=== PATIENT | male | born 1975 | race Caucasian/White ===

== ENCOUNTER 2016-07-07 04:04 | Emergency (ER) | payer SELFPAY ==
[~2016-07-07] VITALS: Ht 175.3 cm; Wt 102.1 kg
[~2016-07-07 04:04] MED LIST: LISI10TA2 PO; Lidocaine TD; POLY17PO5 PO; PRED-220 PO; TRAM-29 PO
[2016-07-07] MEDS ORDERED: ASPIRIN 325 MG TABLET PO ONE (05:00)
[2016-07-07] MEDS ORDERED: PREDNISONE 10 MG TABLET PO ONE (05:00)
[2016-07-07] MEDS ORDERED: KETOROLAC TROMETHAMINE 30 MG/ML INJ. IV ONE (05:00)
[2016-07-07] MEDS ORDERED: IPRATRPIUM/ALBUTEROL 0.5/2.5MG 3 ML NEBU. NEB ONE (05:00)
[2016-07-07 05:09] LABS: BASO % 0 % (0-3); EOS % 2 % (0-3); HEMOGLOBIN 16.5 g/dL (13.0-17.5); LYMPH # 2.5 x10^3/uL (1.0-4.8); LYMPH % 17 % (24-48); MEAN CORPUSCULAR HEMOGLOBIN 31 pg (25-35); MEAN CORPUSCULAR HGB CONC 35 g/dL (31-37); MEAN CORPUSCULAR VOLUME 89 fL (79-100); MONO % 4 % (0-9); NEUT % 77 % (31-73); PLATELET COUNT 587 x10^3/uL (140-400); RED BLOOD COUNT 5.42 x10^6/uL (4.30-5.70); RED CELL DISTRIBUTION WIDTH 14.3 % (11.5-14.5); WHITE BLOOD COUNT 14.4 x10^3/uL (4.0-11.0)
[2016-07-07 05:14] LABS: CREATININE 1.1 mg/dL (0.7-1.3); GFR 73.4; POTASSIUM 4.7 mmol/L (3.5-5.1)
--- NOTE | 2016-07-07 05:57 | PHYS DOC ---
Past Medical History Past Medical History: Asthma Past Surgical History: Other Additional Past Surgical Histo: BILAT SHOULDER, STERNUM Alcohol Use: Occasionally Drug Use: None Adult General Chief Complaint Chief Complaint: CHEST WALL PAIN HPI HPI Patient is a 40 year old male who presents with chest pain. The patient reports 2 day history of substernal chest pain with radiation to back. He states pain is sharp/pressure like. Reports shortness of breath, dry cough, wheezing. Denies fevers or chills, nausea, diaphoresis, lower extremity pain or swelling. Reports previous history of similar pain about one week ago, admitted to the hospital at that time with community-acquired pneumonia, radiology reports suggest may have been atelectasis rather than pneumonia, ultimately discharged home after being evaluated by pulmonary. In the interim has had increased use of rescue inhaler. Patient has history of asthma and sternal surgery, no CAD, hypertension, diabetes, PE/DVT. Former smoker. Review of Systems Review of Systems Constitutional: Denies fever or chills Eyes: Denies change in visual acuity HENT: Denies nasal congestion or sore throat Respiratory: Reports cough and shortness of breath Cardiovascular: Reports chest pain, denies edema GI: Denies abdominal pain, nausea, vomiting, bloody stools or diarrhea Musculoskeletal: Denies back pain or joint pain Integument: Denies rash or skin lesions Neurologic: Denies headache, focal weakness or sensory changes Current Medications Current Medications Current Medications Medications (Trade) Dose Ordered Sig/Darby Start Time Stop Time Status Last Admin Dose Admin Albuterol/ Ipratropium (Duoneb) 3 ml 1X ONCE 07/07/16 05:00 07/07/16 05:01 DC 07/07/16 05:47 3 ML Aspirin (Lila Aspirin) 325 mg 1X ONCE 07/07/16 05:00 07/07/16 05:01 DC 07/07/16 05:01 325 MG Hydromorphone HCl (Dilaudid) 0.5 mg PRN Q1HR PRN 07/07/16 08:30 07/07/16 08:55 0.5 MG Ketorolac Tromethamine 30 mg 30 mg 1X ONCE 07/07/16 05:00 07/07/16 05:01 DC 07/07/16 05:02 30 MG Morphine Sulfate 4 mg PRN Q15MIN PRN 07/07/16 06:00 07/08/16 05:59 07/07/16 08:21 4 MG Ondansetron HCl (Zofran) 4 mg 1X ONCE 07/07/16 08:30 07/07/16 08:33 DC 07/07/16 08:55 4 MG Prednisone (Prednisone) 50 mg 1X ONCE 07/07/16 05:00 07/07/16 05:01 DC 07/07/16 05:02 50 MG Sodium Chloride (Iv Sodium Chloride 0.9% 1000ml Bag) 1,000 ml @ 1,000 mls/hr 1X ONCE 07/07/16 06:00 07/07/16 06:59 DC 07/07/16 05:59 1,000 MLS/HR Allergies Allergies Allergies Coded Allergies Type Severity Reaction Last Updated Verified codeine Allergy Intermediate Swelling 06/30/16 Yes Physical Exam Physical Exam Constitutional: Obese, no acute distress, non-toxic appearance. HENT: Normocephalic, atraumatic, bilateral external ears normal, oropharynx moist, nose normal. Eyes: conjunctiva normal, no discharge. Neck: supple, no stridor. Cardiovascular: Tachycardic, regular, no murmurs, no edema. Lungs & Thorax: LCTAB, occasional expiratory wheeze, no respiratory distress. Reproducible tenderness with palpation over the sternum. Median sternotomy scar Abdomen: soft, nontender, nondistended. Skin: Warm, dry, no erythema, no rash. Back: No tenderness. Extremities: No tenderness, no edema. No calf tenderness or swelling Neurologic: Alert and oriented X 3, no focal deficits noted. Psychologic: Affect normal, judgement normal, mood normal. Current Patient Data Vital Signs Vital Signs Date Time Temp Pulse Resp B/P Pulse Ox O2 Delivery O2 Flow Rate FiO2 07/07/16 08:55 10 07/07/16 06:44 108 132/102 98 Room Air 07/07/16 04:18 97.0 97.0 Lab Values Laboratory Tests Test 07/07/16 04:38 07/07/16 07:50 07/07/16 08:58 White Blood Count 14.4x10^3/uL (4.0-11.0) H Red Blood Count 5.42x10^6/uL (4.30-5.70) Hemoglobin 16.5g/dL (13.0-17.5) Hematocrit 48.0% (39.0-53.0) Mean Corpuscular Volume 89fL (79-100) Mean Corpuscular Hemoglobin 31pg (25-35) Mean Corpuscular Hemoglobin Concent 35g/dL (31-37) Red Cell Distribution Width 14.3% (11.5-14.5) Platelet Count 587x10^3/uL (140-400) H Neutrophils (%) (Auto) 77% (31-73) H Lymphocytes (%) (Auto) 17% (24-48) L Monocytes (%) (Auto) 4% (0-9) Eosinophils (%) (Auto) 2% (0-3) Basophils (%) (Auto) 0% (0-3) Neutrophils # (Auto) 11.1x10^3uL (1.8-7.7) H Lymphocytes # (Auto) 2.5x10^3/uL (1.0-4.8) Monocytes # (Auto) 0.6x10^3/uL (0.0-1.1) Eosinophils # (Auto) 0.2x10^3/uL (0.0-0.7) Basophils # (Auto) 0.0x10^3/uL (0.0-0.2) Prothrombin Time 13.5SEC (11.7-14.0) Prothrombin Time INR 1.1 (0.8-1.1) PTT 26SEC (24-38) Sodium Level 144mmol/L (136-145) Potassium Level 4.7mmol/L (3.5-5.1) Chloride Level 107mmol/L (98-107) Carbon Dioxide Level 23mmol/L (21-32) Anion Gap 14 (6-14) Blood Urea Nitrogen 16mg/dL (8-26) Creatinine 1.1mg/dL (0.7-1.3) Estimated GFR (Cockcroft-Gault) 73.4 Glucose Level 124mg/dL (70-99) H Calcium Level 9.0mg/dL (8.5-10.1) Total Bilirubin 0.3mg/dL (0.2-1.0) Direct Bilirubin 0.1mg/dL (0.0-0.2) Aspartate Amino Transferase (AST) 25U/L (15-37) Alanine Aminotransferase (ALT) 115U/L (16-63) H Alkaline Phosphatase 101U/L (46-116) Troponin I Quantitative < 0.017ng/mL (0.000-0.055) < 0.017ng/mL (0.000-0.055) TV-Nge-P-Type Natriuretic Peptide 14pg/mL (0-124) Total Protein 7.2g/dL (6.4-8.2) Albumin 4.1g/dL (3.4-5.0) Lipase 341U/L (73-393) Lactic Acid Level 2.3mmol/L (0.4-2.0) H Laboratory Tests 07/07/16 04:38 Laboratory Tests 07/07/16 04:38 EKG EKG interpreted by me at 0415: sinus tachycardia rate 121, no acute ST/T wave changes, T waves inverted in V1 without ST depression, Q waves in inferior lead , normal intervals, no ectopy. no significant change from 06/30/2016 [] Radiology/Procedures Radiology/Procedures Chest x-ray: Interpreted by me: Cardiomegaly, no infiltrate, no pneumothorax, no acute process, appears stable from 06/30/2016 [] Course & Med Decision Making Course & Med Decision Making Pertinent Labs and Imaging studies reviewed. (See chart for details) The patient presents with chest pain. Tachycardic upon arrival, minimal wheezing on exam. Gave DuoNeb breathing treatment, Toradol. He had ongoing pain. Ordered morphine for pain. Obtained labs, EKG, chest x-ray. No acute abnormalities identified on chest x-ray or EKG, initial troponin negative. Low suspicion for ACS given recent respiratory symptoms but we'll obtain repeat troponin and EKG, anticipate the patient may be discharged if unchanged. He is in stable condition though tachycardic to 110, at the end of my shift. He had CTA chest performed during previous admission less than 1 week ago so do not plan to repeat today in absence of DVT symptoms. Will transfer care to Dr. Manuel to follow up results & disposition accordingly. [] Dragon Disclaimer Dragon Disclaimer This electronic medical record was generated, in whole or in part, using a voice recognition dictation system. Departure Departure Impression: Primary Impression: Chest pain Referrals: UNKNOWN PCP NAME (PCP) Scripts Morphine Sulfate 15 Mg Tablet1 Tab PO PRN Q6-8HRS PRN SEVERE PAIN #8 TAB Prov:JEREMÍAS MANUEL MD 07/07/16 Assessment/Plan Assessment/Plan 40-year-old gentleman presenting to the emergency department with chest pain and shortness of breath. Vital signs afebrile with tachycardia at 110 approximately. The patient is saturating well on room air. The patient was signed out to me at approximate 6 AM with plans to follow-up on repeat troponin. Chest x-ray similar to previous. EKG not suggestive of acute coronary syndrome. Troponin negative 2. The patient recently within the last 7 [address] has had [address] angiography negative for acute pulmonary embolism. The patient does not have any clinical evidence of DVT. Likely sinus tachycardia secondary to hypovolemia as the patient reports not eating or drinking very much over the past few days. When I examined the patient the patient was describing more epigastric pain. I added on liver function tests bilirubin and lactate. Patient did have a hypovolemic lactic acidosis. Nontender appendix. Ultrasound of the gallbladder shows status post cholecystectomy. Heart score 1. The patient was then discharged home to follow up with their primary care physician over the next 2-3 days. I also referred them to our cardiology team in the outpatient setting over the next 3-4 days. Patient is comfortable with plan. Start instructions and return precautions given [id number]. SMITHA WAKEFIELD MD Jul 07, 2016 05:57 JEREMÍAS MANUEL MD Jul 07, 2016 08:09
[2016-07-07] MEDS: MORPHINE SULFATE 4 MG/ML DISP.SYRIN. IV/SQ PRN ×4 (05:59→08:21)
[2016-07-07] MEDS ORDERED: IV NORMAL SALINE 1000ML BAG 1,000 ML IV ONE (06:00)
--- NOTE | 2016-07-07 06:14 | EKG ---
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
--- NOTE | 2016-07-07 07:54 | RAD ---
AP portable chest radiograph 07/07/2016 Clinical History: Chest pain. An AP portable erect digital radiograph of the chest was obtained. Comparison study is dated 06/30/2016. The cardiac silhouette is borderline enlarged. Surgical clips overlie the mediastinum, unchanged. The thoracic aorta is minimally tortuous. No acute pulmonary infiltrate is seen. No pleural effusion or pneumothorax is noted. Degenerative changes are seen involving the thoracic spine and both shoulders. Impression: No acute abnormality is seen.
[2016-07-07] MEDS ORDERED: ONDANSETRON PF 4 MG/2 ML VIAL. IV ONE (08:30)
[2016-07-07] MEDS ORDERED: HYDROMORPHONE 2 MG/ML VIAL. IV PRN (08:30)
--- NOTE | 2016-07-07 08:40 | EKG ---
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
[2016-07-07 09:00] VITALS: BP 133/96
[2016-07-07 09:01] LABS: INR 1.1 (0.8-1.1); PROTHROMBIN TIME PATIENT 13.5 SEC (11.7-14.0)
[2016-07-07 09:07] LABS: ALBUMIN 4.1 g/dL (3.4-5.0); DIRECT BILIRUBIN 0.1 mg/dL (0.0-0.2); TOTAL BILIRUBIN 0.3 mg/dL (0.2-1.0); TOTAL PROTEIN 7.2 g/dL (6.4-8.2)
--- NOTE | 2016-07-07 09:30 | RAD ---
Ultrasound of the right upper quadrant of the abdomen 07/07/2016 Clinical history: Epigastric pain. Technique: A real-time ultrasound examination of the right upper quadrant of the abdomen was performed. Multiple images were obtained. Findings: The gallbladder is not visualized consistent with a cholecystectomy. The common bile duct measures 5 mm in diameter which is within normal limits. The liver is normal in size measuring 16 cm in length. No focal abnormality of the liver is noted. The visualized portions of the pancreas and right kidney are within normal limits. No free fluid is seen. Impression: 1. Status post cholecystectomy. 2. Otherwise negative study.
[2016-07-07] MEDS ORDERED: MORP15TA PO (09:33)
== END 2016-07-07 09:39 | disposition home or self-care (01) ==
LOC: ER 04:04
DX: R07.2 Precordial pain (principal); R00.0 Tachycardia, unspecified; R06.2 Wheezing; E66.9 Obesity, unspecified; R06.02 Shortness of breath; R05 Cough; J45.909 Unspecified asthma, uncomplicated; Z88.5 Allergy status to narcotic agent; Z68.33 Body mass index [BMI] 33.0-33.9, adult
CPT/HCPCS: 36415; 71010; 76705; 80048; 80076; 83605; 83690; 83880; 84484; 85027; 85610; 85730; 93005; 94640; 96361; 96374; 96375; 96376; 99285; J1170; J1885; J2270; J2405; J7030; J7512; J7620

== ENCOUNTER 2017-09-27 16:10 | Emergency (ER) | payer BC ==
[2017-09-27] MEDS: NAPROXEN 500 MG TABLET PO (17:17)
== END 2017-09-27 19:12 | disposition home or self-care (01) ==
LOC: ER 16:10
DX: M25.552 Pain in left hip (principal); F41.9 Anxiety disorder, unspecified; F32.9 Major depressive disorder, single episode, unspecified; J45.909 Unspecified asthma, uncomplicated; Z88.5 Allergy status to narcotic agent
CPT/HCPCS: 73502; 99284